=== PATIENT | female | born 1930 | race Caucasian/White ===

== ENCOUNTER 2016-06-07 17:04 | Observation (INO) | payer MEDICARE, BC ==
--- NOTE | ~2016-06-07 | DS ---
Discharge Summary [facility] [address] [facility] [place]. [address] NAME: CHRISSY STEVE : 28 STATUS : ADM Jayda PAT#: [id number] AGE: 85 ADM/REG DATE : 06/07/16 MR#: [id number] REPORT SERV DATE: 06/08/16 DICTATED BY: LORRI PIÑA ION DATE: 06/08/16 REPORT STATUS : Draft TRANSCRIBED BY: MODL DATE: 06/08/16 ADMISSION DATE: 06/07/2016 DISCHARGE DATE: 06/08/2016 DISCHARGE DIAGNOSES: 1. Syncope, uncertain etiology, resolved. 2. "Seizure-like episode," no further episodes, resolved. 3. Dementia without behavioral disturbances at baseline. 4. Cerebrovascular disease status post prior cerebrovascular accident and transient ischemic attacks, stable. 5. Hypertension. 6. Chronic urinary tract infections/recurrent on chronic suppressive therapy. 7. Anxiety. 8. Osteoarthritis, osteoporosis, deconditioning, and severe debilitation with very poor functional status. 9. Anemia, multifactorial, stable H and H, hemoglobin 9.9 and hematocrit 31.6. 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 11.Do not resuscitate status. DISCHARGE MEDICATIONS: The patient is going to be discharged back to rehab on same medication she was admitted last night including aspirin 325 mg p.o. daily, Coreg 6.25 mg p.o. b.i.d., Aricept 5 mg p.o. daily, iron sulfate 325 mg p.o. b.i.d., Remeron 15 mg p.o. q.h.s., Bactrim double strength 1 tablet p.o. q.h.s., chronic suppressive therapy, vitamin D 1000 units p.o. daily. Several p.r.n. medications including hydrocodone 5/325 one p.o. q.4 hours p.r.n. pain, and Ativan 0.5 mg p.o. q.6 hours p.r.n. anxiety and agitation. Multiple other p.r.n. medications for constipation and pain. PROCEDURE DURING THIS ADMISSION: No specific procedure performed this time. HISTORY OF PRESENT ILLNESS: For full details, please see history of present illness upon admission on 06/07/2016 by the Hospitalist Service. In summary, the patient is a very pleasant 85-year-old white woman with very poor functional status, history of dementia, hypertension, anxiety, recurrent and chronic UTIs, presented with an episode of seizure-like activity and near syncopal episode. History is not provided by the patient and mostly taken from the patient's family members as well as prior medical records and reports that [facility] facility. Apparently, the patient was in her usual state, and in the middle of the lunch, the patient all of a sudden slumped forward, and when the patient was aroused, had "wide open gaze" and started shaking her left upper extremity for about 15 seconds. The patient afterwards was severely lethargic and confused for quite a while. The patient was evaluated by in-house physician and recommended transferring to the ER for further evaluation and care, even though apparently family did not want her to be transferred for further care as they did not want any further testing and want almost comfort care. Nevertheless, the patient was investigated in the emergency room with several testing including a CT scan of the cervical spine and as well as CT scan of the head. We do not have any acute changes and no revealing information. The patient since arrival in the emergency room has been back at baseline, and she did remain stable. Discharge Summary [id number] [place]. [address] NAME: CHRISSY STEVE : 28 STATUS : ADM Jayda PAT#: [id number] AGE: 85 ADM/REG DATE : 06/07/16 MR#: [id number] REPORT SERV DATE: 06/08/16 DICTATED BY: LORRI PIÑA DATE: 06/08/16 REPORT STATUS : Draft TRANSCRIBED BY: ROMAIN DATE: 06/08/16 HOSPITALIST STAY AND EVOLUTION: The patient was admitted on the Hospitalist Service with the above diagnoses of syncope and seizure-like activity. She was monitored and had received gentle IV hydration while on the monitored floor. The patient was seen by hospice as apparently family had requested more comfort care and hospice care. As per reports from the hospice evaluation, the patient's family wants comfort care with back to the assisted and further consultation with hospice at a later time. Therefore, the patient is going to be discharged back to [facility] to resume her care and rehab, Physical Therapy and monitoring, as she has reached maximum benefit from her hospital stay and treatment. Please note also the written discharge note and discharge orders and instructions. Please note, there are less than 29 minutes spent in preparation of this discharge process documented in the chart. DAVID/ROMAIN Lorri Piña M.D. / [id number] CC: Christiano Lopez M.D.
--- NOTE | ~2016-06-07 | HP ---
History And Physical [place] [address] [facility] [place]. [address] NAME: CHRISSY STEVE : 29 STATUS : ADM IN PAT#: [id number] AGE: 85 ADM/REG DATE : 06/07/16 MR#: [id number] REPORT SERV DATE: 06/07/16 DICTATED BY: SESAR LESTER DATE: 06/07/16 REPORT STATUS : Draft TRANSCRIBED BY: MODL DATE: 06/07/16 DATE OF ADMISSION: 06/07/2016 CHIEF COMPLAINT: A seizure-like episode. HISTORY OF PRESENT ILLNESS: This is an 85-year-old lady with history of dementia, hypertension, anxiety, chronic UTIs, and history of CVA presenting with a seizure-like activity. The patient is not able to give any valuable history. This H and P were formulated from the patient's son and [id number] who was at bedside in the ER as well as from careful review of existing medical records. The patient was going about a normal day at [facility]. The patient's [id number] had joined her for lunch. In the middle of lunch, the patient all of sudden slumped forward, and when the patient was aroused, she sat up straight with and wide open gaze and started shaking her left upper extremity violently and uncontrollably for about 15 seconds. When asked if she was okay, she said something very bad happened and then after that she slumped over again. The patient was then severely lethargic and confused for quite a while. The patient was evaluated by in-house physician who recommended transferring the patient to the ER for further evaluation and care, although the family actually did not want her to be transferred for further care because the family is now interested in seeking hospice care for the patient. In the ER, the patient was found to be afebrile and hemodynamically stable. Initial lab evaluation was all very benign. CT of the head did not reveal any acute changes and CT of the C-spine was also nonacute. Internal Medicine consultation was requested for admission of the patient for further evaluation and care. REVIEW OF SYSTEMS: The patient did not have any fevers or chills. Also, 14-point review of systems reviewed and negative other than mentioned above. MEDICATIONS: 1. Aspirin 325 mg p.o. daily. 2. Coreg 6.25 mg p.o. b.i.d. 3. Aricept 5 mg p.o. q.a.m. 4. Ferrous sulfate 325 mg p.o. with breakfast and supper. 5. Remeron 15 mg p.o. at bedtime. 6. Bactrim one tab p.o. at bedtime. 7. Vitamin D 1000 units p.o. daily. 8. Tylenol 650 mg p.o. q.4 hours p.r.n. 9. Artificial tears one to two drops daily p.r.n. 10.Dulcolax 10 mg p.o. as needed. 11.Fleet Enema as needed. 12.[place] 5/325 one tab p.o. q.4 hours p.r.n. 13.Milk of magnesia 30 mL p.o. as needed. 14.Zofran 4 mg p.o. q.4 hours p.r.n. History And Physical [address] [address] NAME: CHRISSY STEVE : 29 STATUS : ADM IN [facility]#: [id number] AGE: 85 ADM/REG DATE : 06/07/16 MR#: [id number] REPORT SERV DATE: 06/07/16 DICTATED BY: SESAR LESTER DATE: 06/07/16 REPORT STATUS : Draft TRANSCRIBED BY: ROMAIN DATE: 06/07/16 15.MiraLAX one packet p.o. b.i.d. p.r.n. 16.Ultram 50 mg p.o. q.8 hours p.r.n. ALLERGIES: NKDA. PAST MEDICAL HISTORY: 1. Hypertension. 2. Dementia. 3. Anxiety. 4. Old CVA. 5. Urinary tract infection, on chronic suppressive therapy with Bactrim. 6. At baseline, the patient is debilitated and has poor functional status. PAST SURGICAL HISTORY: 1. Hysterectomy. 2. Right hip surgery. 3. Left hip surgery six weeks ago after a fall. FAMILY HISTORY: Negative and non-pertinent. SOCIAL HISTORY: The patient does not smoke, drink alcohol, or use any illicit drugs. The patient resides at [facility] for the past six weeks. PHYSICAL EXAMINATION: VITAL SIGNS: Temperature 98.2, blood pressure 116/39, pulse 68, respiratory rate is 17, saturating 97% on room air. NEURO: The patient is alert, but disoriented x3. The patient has no obvious focal neurologic deficits. GENERAL: The patient is awake, does not appear to be in acute distress, and she is cooperative. NECK: No JVD. No lymphadenopathy. Normal thyroid. CHEST: No midline sternotomy scar and no tenderness to palpation. LUNGS: Clear to auscultation bilaterally with normal respiratory effort on room air. CARDIOVASCULAR: Regular rate and rhythm with no murmurs, rubs, or gallops, and PMI is nondisplaced. ABDOMEN: Soft, nontender, with active bowel sounds and no organomegaly. EXTREMITIES: No edema. Normal distal pulses with no calf tenderness. SKIN: Clean, dry, warm, and intact. LABORATORY DATA: Sodium is 140, potassium 5.2, chloride 104, BUN 30, creatinine 1.25, glucose 100, calcium 9.4. LFTs are within normal limits. White blood cell count is 6.4, hemoglobin 9.9, platelets 230. Strep was negative. CT of the C-spine was nonacute, other than carotid arteriosclerosis. 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 Otherwise, mild to moderate involutional changes and no other acute History And Physical [address] [address] NAME: CHRISSY STEVE : 28 STATUS : ADM IN PAT#: [id number] AGE: 85 ADM/REG DATE : 06/07/16 MR#: [id number] REPORT SERV DATE: 06/07/16 DICTATED BY: SESAR LESTER DATE: 06/07/16 REPORT STATUS : Draft TRANSCRIBED BY: MODKaleb DATE: 06/07/16 findings. ASSESSMENT: This is an 85-year-old lady with history of dementia, old cerebrovascular accident, hypertension, anxiety, chronic urinary tract infections, presenting with a seizure like episode. 1. Seizure-like episode today. 2. Hypertension. 3. Dementia and history of large cerebellar stroke with baseline poor functional status. 4. Anxiety. 5. Chronic urinary tract infections. PLAN: My plan is to admit the patient for observation overnight. I had an extensive discussion with the family and the family is very reasonable in being as conservative as possible. The family is actually interested in speaking with hospice, and thus, the focus of this hospital stay will be to simply monitor the patient and provide supportive care as needed. The patient's hospice will be consulted to speak with the family. All of her home medications will simply be resumed and monitored, and I am not going to order any additional lab work or any imaging studies. Standard DVT prophylaxis. The patient is DNR at this time. YSC/MODL Sesar Lester MD / [id number] CC: Christiano Martinez M.D.
[2016-06-07 16:10] LABS: BASOPHILS 0 %; EOSINOPHILS ABSOLUTE 0.13 10/3/uL (0.0-0.53); ER CBC TAT 0 Hrs 05 Mins; HEMATOCRIT 31.6 % (36.0-48.0); HEMOGLOBIN 9.9 g/dL (12.0-16.0); IMMATURE GRANULOCYTES 0.2 %; IMMATURE GRANULOCYTES ABSOLUTE 0.01 10/3/uL (0.0-0.11); LYMPHOCYTES 20.2 %; LYMPHOCYTES ABSOLUTE 1.29 10/3/uL (0.67-4.30); MEAN CORPUSCULAR HEMOGLOB 27.7 pg (26.0-34.0); MEAN CORPUSCULAR VOLUME 88.3 fL (80-100); MONOCYTES 6.4 %; MONOCYTES ABSOLUTE 0.41 10/3/uL (0.21-1.20); NEUTROPHILS 71.2 %; NEUTROPHILS ABSOLUTE 4.56 10/3/uL (2.02-8.40); RED CELL COUNT 3.58 10/6/uL (4.0-5.6); WHITE BLOOD CELLS 6.4 10/3/uL (4.5-10.5)
[2016-06-07 16:14] LABS: MANUAL DIFF NO %; MEAN CORPUS HGB CONC 31.3 g/dL (32.0-36.0); PLATELET COUNT 230 10/3/uL (150-400)
[2016-06-07 16:27] LABS: ALBUMIN 2.8 G/DL (3.5-5.0); CALCIUM, SERUM 9.4 MG/DL (8.5-10.4); CHLORIDE, SERUM 104 MMOL/L (96-112); CREATININE 1.25 MG/DL (0.55-1.02); GFR AFRICAN AMERICAN 45 ML/MIN (>=60); GFR NON AFRICAN AMERICAN 39 ML/MIN (>=60); GLUCOSE, SERUM 100 MG/DL (60-99); POTASSIUM, SERUM 5.2 MMOL/L (3.5-5.3); SGOT(AST) 20 U/L (5-40); SGPT(ALT) 14 U/L (5-65); SODIUM, SERUM 140 MMOL/L (135-148); TOTAL BILIRUBIN 0.3 MG/DL (0-1.2); TOTAL PROTEIN 6.5 G/DL (6.0-8.5)
[2016-06-07 16:28] LABS: A/G RATIO 0.8 (0.7-1.9); ALKALINE PHOSPHATASE 108 U/L (45-117); BUN (BLOOD UREA NITROGEN) 30 MG/DL (6-23); CO2 (CARBON DIOXIDE) 27 MMOL/L (24-34); GLOBULIN 3.7 G/DL (2.5-4.1); PROLACTIN 11.9 NG/ML
[~2016-06-07 17:04] MED LIST: ACET500CAP PO; AMOXIL500 MG PO; AMPI250 PO; ARICEPT5 PO; ASAB PO; ASAEC PO; B12100T PO; B12250T PO; BAC PO; BUFFERIN PO; CENTRUM PO; CIP2 PO; COREG12 PO; DIOVAN; DIOVAN320 MG PO; FERROUS SULF325 M1 PO; FOLIC ACID PO; FOSAMAX; HALF81 PO; IBU800 PO; KLOR-CON 88 MEQ PO; L20 PO; LASIX; LIQUID TEARS OPH; LOP25 PO; MACRO50B PO; MACROBID PO; MOTRIN; MULTIPLE VIT PO; MULTIVIT/MIN PO; MULTIVITAMI1 PO; OS500+D PO; P10 PO; P5 PO; PLAQ200B PO; PLAQUENIL; POTASSIUM; PREDNISONE PO; PRIN10 PO; REM15 PO; TEARS PLUS OPH; VANTIN200 MG PO; VITAMIN D OTC PO; VITAMIN D31000 UNIT PO; VYTORIN; VYTORIN 10/80 T1 TAB PO; X25 PO
[2016-06-07] MEDS ORDERED: ASABAYER PO ×2 (17:47)
[2016-06-07] MEDS ORDERED: COREG6 PO (17:48)
[2016-06-07] MEDS ORDERED: ARICEPT5 PO (17:48)
[2016-06-07] MEDS ORDERED: FERROUS SULF325 M1 PO (17:48)
[2016-06-07] MEDS ORDERED: REM15 PO (17:48)
[2016-06-07] MEDS ORDERED: VITAMIN D1000 UNI1 PO (17:49)
[2016-06-07] MEDS ORDERED: BAC PO (17:49)
[2016-06-07] MEDS ORDERED: 8 HOUR650 MG PO (17:50)
[2016-06-07] MEDS ORDERED: BION TEARS OPH (17:50)
[2016-06-07] MEDS ORDERED: BISR PR (17:51)
[2016-06-07] MEDS ORDERED: FLEETS ENEMA PR (17:52)
[2016-06-07] MEDS ORDERED: NORCO1 TA1 PO (17:52)
[2016-06-07] MEDS ORDERED: [UNRECOGNIZED DRUG - OTHER] PO (17:53)
[2016-06-07] MEDS ORDERED: MOMUD PO (17:53)
[2016-06-07] MEDS ORDERED: ULTRAM50 PO (17:54)
[2016-06-07] MEDS ORDERED: MIRALAX POWDER1 PKT PO (17:54)
[2016-06-07] MEDS ORDERED: ZOFRAN ODT4 MG PO (17:54)
[2016-06-07 19:52] LABS: WBC (NOT ORDERED) (RFLEX) 0 (0-5)
[2016-06-07 20:04] LABS: ASCORBIC ACID (UR NOT ORDER) NEG (NEG); BILIRUBIN, URINE NEGATIVE (NEG); ER URINALYSIS TAT 0 Hrs 15 Mins; KETONE, URINE NEGATIVE (NEG); LEUKOCYTE ESTERASE(NOT OR NEG (NEG); NITRITE (URINE) NEG (NEG)
[2016-06-07 20:21] LABS: AMPHETAMINES (NOT ORD) NEG (NEG); BARBITURATES (NOT ORDERED NEG (NEG); BENZODIAZEPINES (NOT ORD) NEG (NEG); CANNABINOIDS (THC) NEG (NEG); COCAINE (NOT ORDERED) NEG (NEG); OPIATES NEG (NEG); PHENCYCLIDINE(PCP) NEG (NEG); TRICYCLICS NEG (NEG)
== END 2016-06-08 16:43 ==
LOC: ER 17:04 → 5SO 18:41 → 2SO 22:19
PROVIDERS: Nurse Practitioner Family
DX: R56.9 Unspecified convulsions (principal); R55 Syncope and collapse; F03.90 Unspecified dementia, unspecified severity, without behavioral disturbance, psychotic disturbance, mood disturbance, and anxiety; I10 Essential (primary) hypertension; N39.0 Urinary tract infection, site not specified; F41.9 Anxiety disorder, unspecified; M81.0 Age-related osteoporosis without current pathological fracture; M19.90 Unspecified osteoarthritis, unspecified site; D64.9 Anemia, unspecified; N18.3 Chronic kidney disease, stage 3 (moderate); Z66 Do not resuscitate; Z79.82 Long term (current) use of aspirin; Z79.899 Other long term (current) drug therapy; Z79.52 Long term (current) use of systemic steroids; Z79.891 Long term (current) use of opiate analgesic; Z90.710 Acquired absence of both cervix and uterus; Z98.890 Other specified postprocedural states
CPT/HCPCS: 70450; 72125; 80053; 80305; 81001; 84146; 85025; 87070; 87880; 93005; 96372; 99285; A9270-GY; G0378